=== PATIENT | female | born 1940 ===

== ENCOUNTER 2021-11-22 14:09 | Outpatient (CLI) | payer OTHER | END 2021-11-22 14:15 | disposition home or self-care (01) | LOC: MAMO-SONO 14:09 | PROVIDERS: ATTEND Surgery | DX: Z12.31 Encounter for screening mammogram for malignant neoplasm of breast (principal); N60.11 Diffuse cystic mastopathy of right breast; N60.12 Diffuse cystic mastopathy of left breast ==

== ENCOUNTER → 2023-06-26 | Outpatient (CLI) | payer OTHER | END | disposition home or self-care (01) | LOC: SONOGRAMA 12:09 | DX: E03.8 Other specified hypothyroidism (principal) ==

== ENCOUNTER 2023-07-03 11:13 | Outpatient (CLI) | payer OTHER | END 2023-07-03 11:20 | disposition home or self-care (01) | LOC: SONOGRAMA 11:13 | PROVIDERS: ATTEND Internal Medicine | DX: I11.9 Hypertensive heart disease without heart failure (principal); E22.2 Syndrome of inappropriate secretion of antidiuretic hormone ==